=== PATIENT | female | born 1970 | race Caucasian/White ===

== ENCOUNTER 2017-08-11 10:09 | Emergency (ER) | payer MEDICAID ==
[~2017-08-11] VITALS: Ht 157.5 cm; Wt 100.0 kg
[~2017-08-11 10:09] MED LIST: CYAN10005 PO; FLUT1DIS3 INH; Folic Acid PO; LISI-170 PO; LISI5TAB7 PO; MULT-658 PO; PANT20TA3 PO; THIA100T6 PO
[2017-08-11 10:41] LABS: BASOPHILS # (AUTO) 0.06 x10^3/uL (0-0.1); BASOPHILS % (AUTO) 1 % (0-1); EOSINOPHILS % (AUTO) 1 % (1-7); LYMPHOCYTES # (AUTO) 3.82 x10^3/uL (1-3.4); LYMPHOCYTES % (AUTO) 35 % (22-44); MD NO; MEAN CORPUSCULAR HEMOGLOBIN 30.9 pg (27.0-34.8); MEAN CORPUSCULAR HGB CONC 33.7 g/dL (32.4-35.8); MEAN CORPUSCULAR VOLUME 91.6 fL (80-100); MONOCYTES # (AUTO) 0.74 x10^3/uL (0.2-0.8); MONOCYTES % (AUTO) 7 % (2-9); NEUTROPHILS # (AUTO) 6.22 x10^3/uL (1.8-6.8); NEUTROPHILS % (AUTO) 57 % (42-75); PLATELET COUNT 327 x10^3/uL (130-400); RED BLOOD COUNT 5.34 x10^6/uL (3.82-5.3); RED CELL DISTRIBUTION WIDTH 15.9 % (9.6-15.2)
[2017-08-11 10:47] LABS: HCG UR SG 1.023 (1.003-1.030)
[2017-08-11 10:53] LABS: ALANINE AMINOTRANSFERASE 50 U/L (12-78); ALBUMIN 3.6 g/dL (3.4-5.0); ANION GAP 13 mmol/L (5-15); CALCIUM 8.1 mg/dL (8.5-10.1); CHLORIDE 109 mmol/L (98-107); CREATININE 0.99 mg/dL (0.55-1.02)
[2017-08-11 10:54] LABS: SALICYLATE LEVEL < 1.7 mg/dL (2.8-20.0)
[2017-08-11 10:55] LABS: ALKALINE PHOSPHATASE 64 U/L (45-117); BILIRUBIN,TOTAL 0.3 mg/dL (0.2-1.0); TOTAL PROTEIN 7.5 g/dL (6.4-8.2)
[2017-08-11 10:57] LABS: AMPHETAMINE SCREEN, URINE Negative (Negative); BARBITURATE SCREEN, URINE Negative (Negative); BENZODIAZEPINE SCREEN, URINE Negative (Negative); CANNABINOID SCREEN, URINE Positive (Negative); COCAINE SCREEN, URINE Negative (Negative); METHADONE SCREEN, URINE Negative (Negative); OPIATE SCREEN, URINE Negative (Negative)
[2017-08-11 10:58] LABS: ACETAMINOPHEN < 2 mcg/mL (10-30)
[2017-08-11] MEDS ORDERED: ONDANSETRON ODT 4 MG PO ONE (11:30)
[2017-08-11] MEDS ORDERED: ONDANSETRON ODT 4 MG ONE (11:34)
[2017-08-11 17:29] VITALS: BP 159/77
[2017-08-11] MEDS ORDERED: IBUPROFEN 200 MG TABLET PO ONE (18:30)
== END 2017-08-11 18:36 | disposition home or self-care (01) ==
LOC: ED 10:46
DX: F10.229 Alcohol dependence with intoxication, unspecified (principal); F32.9 Major depressive disorder, single episode, unspecified; I10 Essential (primary) hypertension; F41.9 Anxiety disorder, unspecified; F17.200 Nicotine dependence, unspecified, uncomplicated; Y04.0XXA Assault by unarmed brawl or fight, initial encounter; Y93.89 Activity, other specified; Y92.89 Other specified places as the place of occurrence of the external cause; Y99.8 Other external cause status
CPT/HCPCS: 36415; 80053; 80307; 80329; 81025; 85025; 99284; Q0162; G0480

== ENCOUNTER 2019-02-27 15:25 | Emergency (ER) | payer MEDICAID ==
[~2019-02-27] VITALS: Ht 157.5 cm; Wt 101.5 kg
[~2019-02-27 15:25] MED LIST changes: +CYAN-27 PO; -CYAN10005 PO; -THIA100T6 PO; +THIA100T67 PO
--- NOTE | 2019-02-27 15:47 | NUR ---
PT C/O "NOT FEELING WELL AND FEELING LIKE PASSING OUT" FOR 4 DAYS. HAS FELT LIKE THIS IN THE PAST, BUT NOT THIS LONG. CONNECTED TO MONITORING. CALL LIGHT IN REACH. AWAITING ORDERS AT THIS TIME.
[2019-02-27] MEDS ORDERED: LORazepam 0.5MG TABLET PO ONE (16:00)
[2019-02-27] MEDS ORDERED: LORazepam 0.5MG TABLET ONE (16:11)
--- NOTE | 2019-02-27 16:16 | NUR ---
MEDS ADMIN PER MAY. XRAY DONE. LAB AT BEDSIDE.
[2019-02-27 16:18] VITALS: BP 113/72
[2019-02-27 16:31] LABS: BASOPHILS # (AUTO) 0.05 x10^3/uL (0-0.1); BASOPHILS % (AUTO) 1 % (0-1); EOSINOPHILS # (AUTO) 0.23 x10^3/uL (0-0.4); EOSINOPHILS % (AUTO) 2 % (1-7); LYMPHOCYTES # (AUTO) 2.59 x10^3/uL (1-3.4); LYMPHOCYTES % (AUTO) 26 % (22-44); MD NO; MEAN CORPUSCULAR HEMOGLOBIN 30.5 pg (27.0-34.8); MEAN CORPUSCULAR HGB CONC 33.2 g/dL (32.4-35.8); MEAN CORPUSCULAR VOLUME 91.8 fL (80-100); MEAN PLATELET VOLUME 8.3 fL (7.4-10.4); MONOCYTES # (AUTO) 0.54 x10^3/uL (0.2-0.8); MONOCYTES % (AUTO) 5 % (2-9); NEUTROPHILS # (AUTO) 6.63 x10^3/uL (1.8-6.8); NEUTROPHILS % (AUTO) 66 % (42-75); PLATELET COUNT 302 x10^3/uL (130-400); RED CELL DISTRIBUTION WIDTH 15.3 % (9.6-15.2)
[2019-02-27 16:39] LABS: ALBUMIN 3.6 g/dL (3.4-5.0); ANION GAP 5 mmol/L (5-15); CALCIUM 9.6 mg/dL (8.5-10.1); CHLORIDE 114 mmol/L (98-107); CREATININE 0.68 mg/dL (0.55-1.02)
[2019-02-27 16:43] LABS: TROPONIN I < 0.015 ng/mL (0.000-0.045)
--- NOTE | 2019-02-27 16:58 | NUR ---
ALL RESULTS ARE BACK AT THIS TIME. CHART UP FOR RECHEC. PT STATES SHE FEELS BETTER AFTER MEDS.
== END 2019-02-27 17:35 | disposition home or self-care (01) ==
LOC: ED 17:10
DX: F41.1 Generalized anxiety disorder (principal); R00.2 Palpitations; F17.200 Nicotine dependence, unspecified, uncomplicated; I10 Essential (primary) hypertension; E11.9 Type 2 diabetes mellitus without complications; E78.00 Pure hypercholesterolemia, unspecified; Z86.19 Personal history of other infectious and parasitic diseases
CPT/HCPCS: 36415; 71045; 80048; 82040; 84443; 84484; 84703; 85025; 93005; 99284